=== PATIENT | male | born 1985 | race African-American/Black ===

== ENCOUNTER 2022-05-08 08:50 | Emergency (ER) | payer MEDICAID ==
[~2022-05-08] VITALS: Ht 180.3 cm; Wt 78.0 kg
[2022-05-08 09:17] LABS: BASOPHILS % (AUTO) 0.5 % (0-1); EOSINOPHILS # (AUTO) 0.1 X10'3 (0-0.9); EOSINOPHILS % (AUTO) 1.1 % (0-6); HEMATOCRIT 39.6 % (42.0-52.0); HEMOGLOBIN 13.5 g/dl (14.0-17.9); LYMPHOCYTES # (AUTO) 1.8 X10'3 (1.1-4.8); LYMPHOCYTES % (AUTO) 21.5 % (21-51); MEAN CORPUSCULAR HEMOGLOBIN 28.6 PG (27.0-31.0); MEAN CORPUSCULAR HGB CONC 34.2 g/dL (33.0-36.5); MEAN CORPUSCULAR VOLUME 83.7 FL (78-98); MEAN PLATELET VOLUME 7.1 FL (7.4-10.4); MONOCYTES # (AUTO) 0.7 X10'3 (0-0.9); MONOCYTES % (AUTO) 8.5 % (2-12); NEUTROPHILS # (AUTO) 5.6 X10'3 (1.8-7.7); NEUTROPHILS % (AUTO) 68.4 % (42-75); PLATELET COUNT 363 X10'3 (140-440); RED BLOOD COUNT 4.74 X10'6 (4.70-6.10); RED CELL DISTRIBUTION WIDTH 13.9 % (11.5-14.5); WHITE BLOOD COUNT 8.2 X10'3 (4.5-11.0)
[2022-05-08 09:28] LABS: ALANINE AMINOTRANSFERASE 20 U/L (12-78); ALBUMIN 3.9 G/DL (3.4-5.0); ALKALINE PHOSPHATASE 80 IU/L (46-116); ANION GAP 3 (8-16); ASPARTATE AMINO TRANSFERASE 16 U/L (10-37); BILIRUBIN,TOTAL 0.5 MG/DL (0.1-1.0); BLOOD UREA NITROGEN 7 MG/DL (7-18); BUN/CREATININE RATIO 6.4 (5.4-32.0); CALCIUM 9.9 MG/DL (8.5-10.1); CHLORIDE 99 MMOL/L (99-107); GLUCOSE 132 MG/DL (70-104); LIPASE < 50 U/L (73-393); POTASSIUM 3.7 MMOL/L (3.5-5.1); SODIUM 139 MMOL/L (135-145); eGFR > 90 ML/MIN
[2022-05-08] MEDS ORDERED: normal saline 1000ml 1,000 ML IV ONE (09:55)
[2022-05-08] MEDS ORDERED: ketorolac trometh. 30mg/ml inj. IV ONE (09:55)
[2022-05-08] MEDS ORDERED: iohexol 350MG/ML 100ml bottle IV ONE (10:50)
[2022-05-08 12:41] LABS: CLARITY,URINE CLOUDY (Clear); COLOR,URINE YELLOW (Yellow); GLUCOSE, URINE NEGATIVE (Neg); KETONES,URINE NEGATIVE (Neg); LEUKOCYTE ESTERASE ,URINE NEGATIVE (Neg); NITRITES, URINE NEGATIVE (Neg); OCCULT BLOOD,URINE NEGATIVE (Neg); PH,URINE 8.5 (4.8-8.0); PROTEIN,URINE NEGATIVE (Neg); UROBILINOGEN,URINE 0.2 E.U/dL (0.2-1.0)
[2022-05-08] MEDS ORDERED: CALC625T62 PO (12:55)
[2022-05-08] MEDS ORDERED: MAGN296S89 PO (12:55)
[2022-05-08 13:07] LABS: UA COLLECTION TYPE CLN CATCH MIDSTREAM
[2022-05-08 13:09] VITALS: BP 119/91
[2022-05-08 13:53] LABS: AMORPHOUS PHOSPHATES 4+; BACTERIA,URINE FEW /HPF (Neg); HYALINE CASTS 0-3 /LPF (NEGATIVE); MUCUS STRANDS NONE SEEN /LPF (Neg); RBC,URINE NONE SEEN /HPF (0-2); SQUAMOUS EPITHELIAL CELL,UR FEW /LPF (FEW); WBC,URINE 0-4 /HPF (0-4)
== END 2022-05-08 13:11 | disposition home or self-care (01) ==
LOC: ER 08:51
DX: K59.00 Constipation, unspecified (principal)
CPT/HCPCS: 36415; 74177; 80053; 81001; 83690; 85025; 96361; 96374; 99285; J1885; J3490; J7030; Q9967